=== PATIENT | male | born 1990 | race African-American/Black ===

== ENCOUNTER 2017-06-26 19:42 | Emergency (ER) | payer OTHER | END 2017-06-26 21:40 | disposition home or self-care (01) | LOC: FER 19:42 | DX: S90.212A Contusion of left great toe with damage to nail, initial encounter (principal); F90.9 Attention-deficit hyperactivity disorder, unspecified type; Z88.8 Allergy status to other drugs, medicaments and biological substances; W20.8XXA Other cause of strike by thrown, projected or falling object, initial encounter; Y99.0 Civilian activity done for income or pay | CPT/HCPCS: 73630 ==